=== PATIENT | male | born 1950 | race Caucasian/White ===

== ENCOUNTER 2020-09-07 14:03 | Observation (INO) ==
[2020-09-07] MEDS ORDERED: ACETAMINOPHEN 500 MG TAB PO STA (14:26)
[2020-09-07] MEDS ORDERED: SODIUM CHLORIDE 0.9% 1000ML 1,000 ML IV SCH ×2 (14:30→17:15)
--- NOTE | 2020-09-07 14:55 | Emergency Department Note ---
History of Present Illness General Chief complaint: Fever Stated complaint: FEVER, CHILS Time Seen by Provider: 09/07/20 14:13 History of Present Illness Provider complaint: Fever and chills Onset (ago): day(s) 5 Associated symptoms: + fever/chills (T-max 102), + nausea/vomiting (Vomiting but this has since resolved) and + weakness; no cough, no headaches, no rash and no shortness of breath 69-year-old male presents emergency department for fever and chills. Patient reports he has had fever and chills since Tuesday. He reports T-max of 102. He reports vomiting on . He states the vomiting is since resolved. No hematemesis coffee-ground emesis or bilious vomiting. No dysuria or hematuria. No melena or hematochezia. No chest pain abdominal pain headache or difficulty breathing. Patient states he went to [facility] today and had a rapid Covid and influenza swab that were negative. Patient states he is fully vaccinated gets COVID-19. Patient states he does spend a lot of time outdoors but has not noticed any ticks on him recently. Home Medications Medication Instructions Recorded Confirmed Type aspirin 325 mg PO QAM 09/07/20 09/07/20 History atorvastatin 80 mg PO HS 09/07/20 09/07/20 History cholecalciferol (vitamin D3) 400 unit PO QAM 09/07/20 09/07/20 History [Vitamin D3] coQ10 (ubiquinol) 400 mg PO QAM 09/07/20 09/07/20 History Allergies Allergy/AdvReac Type Severity Reaction Status Date / Time No Known Allergies Allergy Unverified 09/07/20 14:51 Past Med/Surg History Medical History CAD (coronary artery disease) HLD (hyperlipidemia) No pertinent family history Surgical History H/O heart artery stent Social History Smoking Status: Former smoker Tobacco Type: Cigarettes Preferred Language: Israeli Feels Safe at Home: Yes Review of Systems A total of 10 systems reviewed and were otherwise negative Physical Exam Vital Signs Vital Signs - 24 hr 09/07/20 14:08 09/07/20 14:42 09/07/20 14:45 Temperature 37.8 C H Temperature Source Temporal Artery Scan Pulse Rate 90 82 80 Pulse Rate [Right] Pulse Rate from SpO2 Sensor Pulse Rhythm [Right] Pulse Strength [Right] Respiratory Rate 18 18 21 Respiratory Effort / Characteristics Respiratory Depth Respiratory Pattern Blood Pressure 133/84 132/78 134/81 Blood Pressure [Right Arm] Blood Pressure Mean 100 96 98 Blood Pressure Mean [Right Arm] Pulse Oximetry 98 Oxygen Delivery Method Room Air Sepsis Recent Fever Within 48 Hours Yes Sepsis New/Unexplained Change in Mental Status No Sepsis Action Taken by Nursing No Action Required 09/07/20 15:00 09/07/20 15:01 09/07/20 15:15 Temperature Temperature Source Pulse Rate Pulse Rate [Right] Pulse Rate from SpO2 Sensor 83 82 79 Pulse Rhythm [Right] Pulse Strength [Right] Respiratory Rate 19 19 22 Respiratory Effort / Characteristics Respiratory Depth Respiratory Pattern Blood Pressure 135/74 133/74 Blood Pressure [Right Arm] Blood Pressure Mean 94 93 Blood Pressure Mean [Right Arm] Pulse Oximetry 97 97 98 Oxygen Delivery Method Sepsis Recent Fever Within 48 Hours Sepsis New/Unexplained Change in Mental Status Sepsis Action Taken by Nursing 09/07/20 15:16 09/07/20 15:24 09/07/20 15:30 Temperature Temperature Source Pulse Rate Pulse Rate [Right] Pulse Rate from SpO2 Sensor 81 83 Pulse Rhythm [Right] Pulse Strength [Right] Respiratory Rate 24 19 Respiratory Effort / Characteristics Non-Labored Non-Labored Respiratory Depth Respiratory Pattern Blood Pressure 126/81 Blood Pressure [Right Arm] Blood Pressure Mean 96 Blood Pressure Mean [Right Arm] Pulse Oximetry 98 100 Oxygen Delivery Method Room Air Sepsis Recent Fever Within 48 Hours Sepsis New/Unexplained Change in Mental Status Sepsis Action Taken by Nursing 09/07/20 15:31 09/07/20 15:34 09/07/20 15:45 Temperature 39.1 C H Temperature Source Oral Pulse Rate Pulse Rate [Right] 78 Pulse Rate from SpO2 Sensor 81 78 Pulse Rhythm [Right] Regular Pulse Strength [Right] Normal Respiratory Rate 21 19 19 Respiratory Effort / Characteristics Non-Labored Respiratory Depth Normal Respiratory Pattern Regular Blood Pressure 139/76 Blood Pressure [Right Arm] 126/81 Blood Pressure Mean 97 Blood Pressure Mean [Right Arm] 96 Pulse Oximetry 98 98 98 Oxygen Delivery Method Room Air Sepsis Recent Fever Within 48 Hours Sepsis New/Unexplained Change in Mental Status Sepsis Action Taken by Nursing 09/07/20 15:46 09/07/20 16:00 09/07/20 16:01 Temperature Temperature Source Pulse Rate Pulse Rate [Right] Pulse Rate from SpO2 Sensor 89 80 83 Pulse Rhythm [Right] Pulse Strength [Right] Respiratory Rate 18 23 22 Respiratory Effort / Characteristics Non-Labored Respiratory Depth Respiratory Pattern Blood Pressure 112/62 Blood Pressure [Right Arm] Blood Pressure Mean 78 Blood Pressure Mean [Right Arm] Pulse Oximetry 97 97 97 Oxygen Delivery Method Room Air Sepsis Recent Fever Within 48 Hours Sepsis New/Unexplained Change in Mental Status Sepsis Action Taken by Nursing Physical Exam GENERAL: He is oriented to person, place, and time. He appears well-developed and well-nourished. He does not appear distressed. HENT: Exam performed. - Head: Normocephalic and atraumatic. - Right Ear: External ear normal. No mastoid tenderness. - Left Ear: External ear normal. No mastoid tenderness. - Mouth/Throat: The oropharynx is clear and moist. No trismus in the jaw. No dental abscesses or uvula swelling. No oropharyngeal exudate or tonsillar abscesses. EYES: Conjunctivae and EOM are normal. Pupils are equal, round, and reactive to light. Right eye exhibits no discharge. Left eye exhibits no discharge. No scleral icterus. NECK: Normal range of motion. Neck supple. No JVD present. No spinous process tenderness present. No carotid bruit present. No rigidity. No tracheal deviation and normal range of motion present. No Brudzinski's sign and no Kernig's sign noted. CV: Tachycardic rate, regular rhythm, normal heart sounds and intact distal pulses. There is no peripheral edema. Palpable radial pulses bue. PULM/CHEST: Effort normal and breath sounds normal. No respiratory distress. No stridor. He has no wheezes. He has no rales. - Chest Wall: He exhibits no tenderness. ABD: The abdomen is soft. Bowel sounds are normal. He has no distension. No mass is present. There is no tenderness. There is no rebound, no guarding, no Alva's sign and no tenderness at McBurney's point. Rovsig negative. MUSC/SKEL: Normal range of motion. There is no peripheral edema, tenderness or deformity. LYMPH: No cervical adenopathy. NEURO: He is alert and oriented to person, place, and time. He has normal stren gth. No cranial nerve deficit or sensory deficit. Coordination and gait normal. GCS eye subscore is 4. GCS verbal subscore is 5. GCS motor subscore is 6. Cerebellar tests wnl. SKIN: Skin is warm and dry. He is not diaphoretic. PSYCH: He has a normal mood and affect. Behavior is normal. Judgment and thought content normal. Course Course 1413: The patient was evaluated in room B6. A complete history and physical exam was performed Cardiac monitoring: An order was placed for continuous cardiac monitoring. The monitor shows a rate of 100 with sinus rhythm 1630: Repeat physical exam the patient has no pain on palpation of the abdomen and no meningeal signs. No focal neurological deficit. Labs show leukopenia of 4.12. Platelet count 37. bilirubin 1.1. AST ALT 102/79 respectively. Troponin elevated 0.051. Patient continues to deny chest pain. Procalcitonin elevated 1.78. Urinalysis and chest x-ray negative. Peripheral smear negative for anaplasmosis Lyme screen and Covid screen negative. Despite the patient having a negative peripheral smear, the patient's labs are concerning for anaplasmosis infection given the thrombocytopenia, leukopenia and elevated liver enzymes. Patient be treated with doxycycline 100 mg IV. I did discuss the case with the hospitalist team who agreed with this antibiotics Barb Douglas. She states to admit to Dr. Peña is [facility] hospitalist. Administered Medications Doxycycline Hyclate 100 mg/ (Dextrose) 110 mls @ 50 mls/hr IV NOW STA Stop: 09/07/20 18:32 Last Admin: 09/07/20 17:22 Dose: 50 mls/hr Documented by: Discontinued Medications Acetaminophen (Acetaminophen 500 Mg Tab) 1,000 mg PO NOW STA Stop: 09/07/20 14:27 Last Admin: 09/07/20 15:36 Dose: 1,000 mg Documented by: [id number] Sodium Chloride (Nss 1000ml) 1,000 mls @ 999 mls/hr IV .Q1H1M ROZ Stop: 09/07/20 15:30 Last Admin: 09/07/20 15:38 Dose: 999 mls/hr Documented by: [id number] Medical Decision Making Laboratory Data Result diagrams: 09/07/20 14:40 09/07/20 14:40 Lab Results 09/07/20 09/07/20 09/07/20 Range/Units 14:33 14:33 14:40 WBC (4.8-10.8) K/uL RBC (4.7-6.1) M/uL Hgb (14.0-18.0) g/dL Hct (42-52) % MCV (80-100) fL MCH (25-34) pg MCHC (32-36) g/dL RDW Std Deviation (36.4-46.3) fL RDW Coeff of Delvis (11.5-14.5) % Plt Count (130-400) K/uL Immature Gran % (Auto) % Neut % (Auto) % Lymph % (Auto) % Winn % (Auto) % Eos % (Auto) % Baso % (Auto) % Neut # (Auto) (1.4-6.5) K/uL Lymph # (Auto) (1.2-3.4) K/uL Winn # (Auto) (0.11-0.59) K/uL Eos # (Auto) (0-0.5) K/uL Baso # (Auto) (0-0.2) K/uL Immature Gran # (Auto) (0.00-0.02) K/uL Platelet Estimate (Normal) PT (9.0-12.0) Seconds INR (0.9-1.1) APTT (21.0-31.0) Seconds PTT Ratio Sodium (136-145) mmol/L Potassium (3.5-5.1) mmol/L Chloride (98-107) mmol/L Carbon Dioxide (21-32) mmol/L Anion Gap (3-11) BUN (7-18) mg/dl Creatinine (0.6-1.4) mg/dl Est Cr Clr Drug Dosing ml/min Est GFR ( Amer) ml/min Est GFR (Non-Af Amer) ml/min BUN/Creatinine Ratio (10-20) Glucose (70-99) mg/dl Lactate (0.4-2.0) mmol/L Calcium (8.5-10.1) mg/dl Magnesium (1.8-2.4) mg/dl Total Bilirubin (0.2-1) mg/dl AST (15-37) U/L ALT (12-78) U/L Alkaline Phosphatase (45-117) U/L Troponin I (0-0.045) ng/ml Total Protein (6.4-8.2) gm/dl Albumin (3.4-5.0) gm/dl Globulin (2.5-4.0) gm/dl Albumin/Globulin Ratio (0.9-2) Procalcitonin (0-0.5) ng/ml Urine Color Urine Appearance (Clear) Urine pH (4.5-7.5) Ur Specific Victoria (1.000-1.030) Urine Protein (Negative) Urine Glucose (UA) (Negative) Urine Ketones (Negative) Urine Blood (Negative) Urine Nitrite (Negative) Urine Bilirubin (Negative) Urine Urobilinogen (Negative) Ur Leukocyte Esterase (Negative) Urine WBC (Auto) (0-5) /hpf Urine RBC (Auto) (0-4) /hpf U Hyaline Cast (Auto) (0-5) /lpf U Epithel Cells (Auto) (0-5) /lpf Urine Bacteria (Auto) (Negative) Urine Yeast Anaplasma Smear Lyme Disease IgG Ab Cancelled Lyme Disease IgM Ab Cancelled COVID-19 Eval Order Covid19 at [facility] SARS-CoV-2 (PCR) NEGATIVE (Negative) 09/07/20 09/07/20 09/07/20 Range/Units 14:40 14:40 14:40 WBC 4.12 L (4.8-10.8) K/uL RBC 4.88 (4.7-6.1) M/uL Hgb 15.1 (14.0-18.0) g/dL Hct 44.5 (42-52) % MCV 91.2 (80-100) fL MCH 30.9 (25-34) pg MCHC 33.9 (32-36) g/dL RDW Std Deviation 47.4 H (36.4-46.3) fL RDW Coeff of Delvis 14.0 (11.5-14.5) % Plt Count 37 L (130-400) K/uL Immature Gran % (Auto) 0.2 % Neut % (Auto) 64.7 % Lymph % (Auto) 19.4 % Winn % (Auto) 12.1 % Eos % (Auto) 0.0 % Baso % (Auto) 3.6 % Neut # (Auto) 2.66 (1.4-6.5) K/uL Lymph # (Auto) 0.80 L (1.2-3.4) K/uL Winn # (Auto) 0.50 (0.11-0.59) K/uL Eos # (Auto) 0.00 (0-0.5) K/uL Baso # (Auto) 0.15 (0-0.2) K/uL Immature Gran # (Auto) 0.01 (0.00-0.02) K/uL Platelet Estimate SIGNIFIC DECREASED (Normal) PT 10.3 (9.0-12.0) Seconds INR 1.0 (0.9-1.1) APTT 27.6 (21.0-31.0) Seconds PTT Ratio 1.0 Sodium 134 L (136-145) mmol/L Potassium 3.9 (3.5-5.1) mmol/L Chloride 98 (98-107) mmol/L Carbon Dioxide 31 (21-32) mmol/L Anion Gap 5.0 (3-11) BUN 20 H (7-18) mg/dl Creatinine 1.19 (0.6-1.4) mg/dl Est Cr Clr Drug Dosing 57.8 ml/min Est GFR ( Amer) 71.3 ml/min Est GFR (Non-Af Amer) 61.5 ml/min BUN/Creatinine Ratio 16.7 (10-20) Glucose 116 H (70-99) mg/dl Lactate (0.4-2.0) mmol/L Calcium 9.0 (8.5-10.1) mg/dl Magnesium 2.0 (1.8-2.4) mg/dl Total Bilirubin 1.1 H (0.2-1) mg/dl AST 102 H (15-37) U/L ALT 79 H (12-78) U/L Alkaline Phosphatase 184 H (45-117) U/L Troponin I 0.051 H* (0-0.045) ng/ml Total Protein 6.7 (6.4-8.2) gm/dl Albumin 3.0 L (3.4-5.0) gm/dl Globulin 3.7 (2.5-4.0) gm/dl Albumin/Globulin Ratio 0.8 L (0.9-2) Procalcitonin (0-0.5) ng/ml Urine Color Urine Appearance (Clear) Urine pH (4.5-7.5) Ur Specific Victoria (1.000-1.030) Urine Protein (Negative) Urine Glucose (UA) (Negative) Urine Ketones (Negative) Urine Blood (Negative) Urine Nitrite (Negative) Urine Bilirubin (Negative) Urine Urobilinogen (Negative) Ur Leukocyte Esterase (Negative) Urine WBC (Auto) (0-5) /hpf Urine RBC (Auto) (0-4) /hpf U Hyaline Cast (Auto) (0-5) /lpf U Epithel Cells (Auto) (0-5) /lpf Urine Bacteria (Auto) (Negative) Urine Yeast Anaplasma Smear See Comment Lyme Disease IgG Ab Lyme Disease IgM Ab COVID-19 Eval Order SARS-CoV-2 (PCR) (Negative) 09/07/20 09/07/20 09/07/20 Range/Units 14:40 14:41 14:45 WBC (4.8-10.8) K/uL RBC (4.7-6.1) M/uL Hgb (14.0-18.0) g/dL Hct (42-52) % MCV (80-100) fL MCH (25-34) pg MCHC (32-36) g/dL RDW Std Deviation (36.4-46.3) fL RDW Coeff of Delvis (11.5-14.5) % Plt Count (130-400) K/uL Immature Gran % (Auto) % Neut % (Auto) % Lymph % (Auto) % Winn % (Auto) % Eos % (Auto) % Baso % (Auto) % Neut # (Auto) (1.4-6.5) K/uL Lymph # (Auto) (1.2-3.4) K/uL Winn # (Auto) (0.11-0.59) K/uL Eos # (Auto) (0-0.5) K/uL Baso # (Auto) (0-0.2) K/uL Immature Gran # (Auto) (0.00-0.02) K/uL Platelet Estimate (Normal) PT (9.0-12.0) Seconds INR (0.9-1.1) APTT (21.0-31.0) Seconds PTT Ratio Sodium (136-145) mmol/L Potassium (3.5-5.1) mmol/L Chloride (98-107) mmol/L Carbon Dioxide (21-32) mmol/L Anion Gap (3-11) BUN (7-18) mg/dl Creatinine (0.6-1.4) mg/dl Est Cr Clr Drug Dosing ml/min Est GFR ( Amer) ml/min Est GFR (Non-Af Amer) ml/min BUN/Creatinine Ratio (10-20) Glucose (70-99) mg/dl Lactate 2.0 (0.4-2.0) mmol/L Calcium (8.5-10.1) mg/dl Magnesium (1.8-2.4) mg/dl Total Bilirubin (0.2-1) mg/dl AST (15-37) U/L ALT (12-78) U/L Alkaline Phosphatase (45-117) U/L Troponin I (0-0.045) ng/ml Total Protein (6.4-8.2) gm/dl Albumin (3.4-5.0) gm/dl Globulin (2.5-4.0) gm/dl Albumin/Globulin Ratio (0.9-2) Procalcitonin 1.78 H (0-0.5) ng/ml Urine Color Dark Yellow Urine Appearance Cloudy A (Clear) Urine pH 5.5 (4.5-7.5) Ur Specific Victoria 1.023 (1.000-1.030) Urine Protein 2+ H (Negative) Urine Glucose (UA) Negative (Negative) Urine Ketones Negative (Negative) Urine Blood 1+ H (Negative) Urine Nitrite Negative (Negative) Urine Bilirubin Negative (Negative) Urine Urobilinogen Negative (Negative) Ur Leukocyte Esterase Negative (Negative) Urine WBC (Auto) 1-5 (0-5) /hpf Urine RBC (Auto) 0-4 (0-4) /hpf U Hyaline Cast (Auto) 1-5 (0-5) /lpf U Epithel Cells (Auto) 10-20 H (0-5) /lpf Urine Bacteria (Auto) Negative (Negative) Urine Yeast Not Reportable Anaplasma Smear Lyme Disease IgG Ab Negative Lyme Disease IgM Ab Negative COVID-19 Eval Order SARS-CoV-2 (PCR) (Negative) Imaging Data Radiologist's Impression: Chest X-Ray 09/07/20 14:24 XR chest 1V portable CLINICAL HISTORY: SEPSIS COMPARISON STUDY: No previous studies for comparison. FINDINGS: Lung volumes are normal. Lungs are clear. There is no pneumothorax or pleural effusion. Mild cardiomegaly is noted. Mediastinal contours are normal. There is no evidence for pulmonary edema. There are median sternotomy wires and mediastinal surgical clips. IMPRESSION: No acute cardiopulmonary findings. ACT 112: Negative or not required by law. Electronically signed by: Ralph Barnes M.D. 09/07/2020 3:06 PM ECG Data Indication: + other (sepsis) Rate (beats per minute): 83 Rhythm: + normal sinus ECG Intervals/blocks: + Normal QRS, + Normal [place] and + Normal QT-c ECG ST segments: + Normal ST segments [facility] Narrative 1413: The patient was evaluated in room B6. A complete history and physical exam was performed Cardiac monitoring: An order was placed for continuous cardiac monitoring. The monitor shows a rate of 100 with sinus rhythm 1630: Repeat physical exam the patient has no pain on palpation of the abdomen and no meningeal signs. No focal neurological deficit. Labs show leukopenia of 4.12. Platelet count 37. bilirubin 1.1. AST ALT 102/79 respectively. Troponin elevated 0.051. Patient continues to deny chest pain. Procalcitonin elevated 1.78. Urinalysis and chest x-ray negative. Peripheral smear negative for anaplasmosis Lyme screen and Covid screen negative. Despite the patient having a negative peripheral smear, the patient's labs are concerning for anaplasmosis infection given the thrombocytopenia, leukopenia and elevated liver enzymes. Patient be treated with doxycycline 100 mg IV. I did discuss the case with the hospitalist team who agreed with this antibiotics Barb Douglas. She states to admit to Dr. Peña is [facility] hospitalist. Impression & Plan Sepsis, Thrombocytopenia, Elevated troponin, Transaminitis, At high risk for tick borne illness Discharge Plan Visit Data Chief Complaint: Fever Stated Complaint: FEVER, CHILS ED Provider: Chevy Tracy Discharge Problem: Sepsis, Thrombocytopenia, Elevated troponin, Transaminitis, At high risk for tick borne illness Patient Disposition: Admitted As Inpatient Forms Stand Alone Forms: My [facility] Prescriptions Prescriptions: No Action atorvastatin 80 mg Tablet 80 mg PO HS RF: 0 aspirin 325 mg Tablet 325 mg PO QAM RF: 0 cholecalciferol (vitamin D3) [Vitamin D3] 10 mcg (400 unit) Tablet 400 unit PO QAM RF: 0 coQ10 (ubiquinol) 200 mg Capsule 400 mg PO QAM RF: 0 Referrals Referrals: Jory Brower DO [Primary Care Provider] - Discharge Problem: Sepsis Qualifiers: Sepsis type: sepsis due to unspecified organism Sepsis acute organ dysfunction status: unspecified Qualified Code(s): A41.9 - Sepsis, unspecified organism
--- NOTE | 2020-09-07 15:08 | XRay Report ---
XR chest 1V portable CLINICAL HISTORY: SEPSIS COMPARISON STUDY: No previous studies for comparison. FINDINGS: Lung volumes are normal. Lungs are clear. There is no pneumothorax or pleural effusion. Mil d cardiomegaly is noted. Mediastinal contours are normal. There is no evidence for pulmonary edema. T here are median sternotomy wires and mediastinal surgical clips. IMPRESSION: No acute cardiopulmonary findings. ACT 112: Negative or not required by law. Electronically signed by: Ralph Barnes M.D. 09/07/2020 3:06 PM
[2020-09-07 15:11] LABS: Appearance Urine Cloudy (Clear); Bacteria Urine Automated Negative (Negative); Bilirubin Urine Negative (Negative); Blood Urine 1+ (Negative); Color Urine Dark Yellow; Glucose Urine UA Negative (Negative); Ketones Urine Negative (Negative); Leukocyte Esterase Urine Negative (Negative); Nitrite Urine Negative (Negative); Protein Urine 2+ (Negative); RBC Urine Automated 0-4 /hpf (0-4); Specific Gravity Urine 1.023 (1.000-1.030); Urobilinogen Urine Negative (Negative); pH Urine 5.5 (4.5-7.5)
[2020-09-07 15:14] LABS: Partial Thromboplastin Time 27.6 Seconds (21.0-31.0); Prothrombin Time 10.3 Seconds (9.0-12.0)
[2020-09-07 15:30] LABS: BUN Creatinine Ratio 16.7 (10-20); Creatinine Clr Calc Pharmacy 57.8 ml/min; Est GFR (African American) 71.3 ml/min; Est GFR (Non-African American) 61.5 ml/min; Potassium 3.9 mmol/L (3.5-5.1)
[2020-09-07 15:34] LABS: Hematocrit (blood only) 44.5 % (42-52); Hemoglobin 15.1 g/dL (14.0-18.0); Mean Corpuscular Hemoglobin 30.9 pg (25-34); Mean Corpuscular Hgb Conc 33.9 g/dL (32-36); Mean Corpuscular Volume 91.2 fL (80-100); Platelet Count 37 K/uL (130-400); RDW Standard Deviation 47.4 fL (36.4-46.3); Red Blood Count 4.88 M/uL (4.7-6.1); White Blood Count 4.12 K/uL (4.8-10.8)
[2020-09-07 15:38] LABS: Bilirubin,Total 1.1 mg/dl (0.2-1)
[2020-09-07 15:39] LABS: Albumin Globulin Ratio 0.8 (0.9-2); Globulin 3.7 gm/dl (2.5-4.0); Total Protein 6.7 gm/dl (6.4-8.2); Troponin I 0.051 ng/ml (0-0.045)
[2020-09-07 15:52] LABS: Procalcitonin 1.78 ng/ml (0-0.5)
[2020-09-07 15:57] LABS: Basophils # (auto) 0.15 K/uL (0-0.2); Basophils % (auto) 3.6 %; Immature Granulocytes # (auto) 0.01 K/uL (0.00-0.02); Immature Granulocytes % (auto) 0.2 %; Lymphocytes % (auto) 19.4 %; Monocytes % (auto) 12.1 %; Neutrophils # (auto) 2.66 K/uL (1.4-6.5); Neutrophils % (auto) 64.7 %; Platelet Estimate SIGNIFIC DECREASED (Normal)
[2020-09-07 16:00] LABS: Lyme Ab IgG w/WB Rflx Negative (Negative); Lyme Ab IgM w/WB Rflx Negative (Negative)
[2020-09-07] MEDS ORDERED: DOXYCYCLINE HYCLATE 100 MG in DEXTROSE 5% 100 ML IV STA (16:21)
--- NOTE | 2020-09-07 16:58 | History & Physical Report ---
Date of Service September 07, 2020 Assessment & Plan (1) At high risk for tick borne illness: (2) Fever and chills: This is a 69yo M with a PMH of CAD (s/p CABG in 1999) and HLD who presents with fever and chills x 5 days with high suspicion for tick borne illness. 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 Covid PCR negative, Lyme titer negative Peripheral smear without presence of inclusion bodies -Anaplasma DNA pending Continue doxycycline, adding IV Rocephin for additional coverage as well as vancomycin to empirically cover for endocarditis due to recent oral surgery Follow blood cultures Liver u/s in setting of transaminitis Supportive care with IV fluids, Tylenol as needed CMP, CBC in AM (3) Thrombocytopenia: Platelets 37 in setting of highly suspected tickborne illness SCDs only for VTE prophylaxis Holding aspirin for now Monitor with daily CBC (4) Transaminitis: Tbili 1.1, AST 102, ALT 79, alk phos 184 in setting of highly suspected tickborne illness No abdominal pain Liver u/s without gallstones or biliary ductal dilatation. 1.4cm cystic lesion nonspecific but likely reflects a mildly complex cyst * "A liver abscess is within the differential given the clinical history however the appearance is not suggestive of an abscess. Either short-term follow-up ultrasound or MRI could be obtained for further evaluation as indicated." Holding statin for now Monitor with daily CMP (5) Elevated troponin: Mildly elevated at 0.051 in setting of infection No chest pain or anginal symptomatic, no acute ischemic changes to EKG Observation on telemetry, resting echo, trend troponin (6) CAD (coronary artery disease): History of CABG in 1999 Aspirin held as mentioned above Has not needed to use nitroglycerin for years (7) HLD (hyperlipidemia): Holding statin as mentioned above DVT Ppx: SCDs Code status: FULL PCP: [facility] Dispo: Observation med tele. Discharge planning ordered. Patient seen in collaboration with Dr. Wiley. Please see addendum. (8) Sepsis: History of Present Illness Chief Complaint: fatigue, fever Primary Care Provider: Jory Brower DO This is a 69yo M with a PMH of CAD (s/p CABG in 1999) and HLD who presents with fever and chills x 5 days. Tmax of 102. Patient has been feeling too weak to get up from couch over the past few days, which is significantly different than active baseline, including yard work and hiking. Endorses poor appetite, nausea and one episode of vomiting a few days ago that has since resolved. Denies any headache, lightheadedness, neck pain, near syncope, chest pain, palpitations, shortness of breath, abdominal pain, bloating, dysuria, diarrhea or constipation. Did have tooth extraction on 08/22/20 and took a 7 day course of amoxicillin at that time. Takes full dose aspirin for history of CABG as well as statin and coQ10. Denies any tick bites but spends a lot of time outdoors. Also with pets at home. Allergies Allergy/AdvReac Type Severity Reaction Status Date / Time No Known Allergies Allergy Unverified 09/07/20 14:51 Home Medications Medication Instructions Recorded Confirmed Type aspirin 325 mg PO QAM 09/07/20 09/07/20 History atorvastatin 80 mg PO HS 09/07/20 09/07/20 History cholecalciferol (vitamin D3) 400 unit PO QAM 09/07/20 09/07/20 History [Vitamin D3] coQ10 (ubiquinol) 400 mg PO QAM 09/07/20 09/07/20 History Past Med/Surg History Medical History (Updated 09/07/20 @ 20:37 by Barb Douglas PA-C) CAD (coronary artery disease) HLD (hyperlipidemia) Surgical History H/O heart artery stent Family History Other Heart disease Hypertension Social History Smoking Status: Former smoker Tobacco Type: Cigarettes Second Hand Exposure: No; Hx Alcohol Use: No Hx Substance Use: No Preferred Language: Vietnamese Communication Ability: Effective Tenderizer Tender Required: No Beliefs That Will Affect Care: None Current Living Situation: Spouse Other Information That Helps Us Care for You: No Feels Safe at Home: Yes Safety Concerns: Feels Safe At This Time Assistive Devices: Glasses and Hearing Aid - Bilateral Review of Systems Review of Systems: At least ten systems reviewed and negative except as noted in the HPI. Physical Exam Physical Exam: General Appearance: vitals as above, sitting up in bed, pleasant, conversing easily but appears acutely ill, flushed Head: normocephalic, atraumatic Eyes: normal inspection, PERRL, conjunctivae normal, anicteric sclerae ENT: external ear and nose normal, oropharynx normal Neck: normal visual inspection, trachea midline, no thyromegaly Respiratory: normal respiratory effort, lungs clear to auscultation, no wheeze, rales, rhonchi. No accessory muscle use Cardiovascular: regular rate, rhythm, no murmur, normal peripheral pulses, no BLE edema. Vessels: no JVD Chest: normal inspection of chest Abdomen/GI: normal bowel sounds, soft, nontender, no hepatosplenomegaly Extremities/Musculoskeletal: no cyanosis or clubbing, extremities motor strength 5/5 Neurologic: PERRL, EOMI, accommodation nl, no face palsy, no dysarthria, CN's II-XI intact bilaterally and moves all extremities Psychiatric: A+Ox3, euthymic affect Skin: no rashes, normal color, warm/dry Results & Data Results & Data ([facility]) Vital Signs (Past 12 Hours) Vital Signs Temp Pulse Pulse Resp BP BP Pulse Ox 09/07/20 16:01 22 97 09/07/20 16:00 23 112/62 97 09/07/20 15:46 18 97 09/07/20 15:45 19 139/76 98 09/07/20 15:34 39.1 C H 78 19 126/81 98 09/07/20 15:31 21 98 09/07/20 15:30 19 126/81 100 09/07/20 15:16 24 98 09/07/20 15:15 22 133/74 98 09/07/20 15:01 19 97 09/07/20 15:00 19 135/74 97 09/07/20 14:45 80 21 134/81 09/07/20 14:42 82 18 132/78 09/07/20 14:08 37.8 C H 90 18 133/84 98 Laboratory Results Short CBC 09/07/20 Range/Units 14:40 WBC 4.12 L (4.8-10.8) K/uL Hgb 15.1 (14.0-18.0) g/dL Hct 44.5 (42-52) % Plt Count 37 L (130-400) K/uL BMP 09/07/20 14:40 Sodium 134 L Potassium 3.9 Chloride 98 Carbon Dioxide 31 BUN 20 H Creatinine 1.19 Glucose 116 H Calcium 9.0 Cardiac Enzymes 09/07/20 Range/Units 14:40 Troponin I 0.051 H* (0-0.045) ng/ml Liver Function 09/07/20 Range/Units 14:40 Total Bilirubin 1.1 H (0.2-1) mg/dl AST 102 H (15-37) U/L ALT 79 H (12-78) U/L Alkaline Phosphatase 184 H (45-117) U/L Albumin 3.0 L (3.4-5.0) gm/dl Urine 09/07/20 Range/Units 14:45 Urine Color Dark Yellow Urine Appearance Cloudy A (Clear) Urine pH 5.5 (4.5-7.5) Ur Specific [place] 1.023 (1.000-1.030) Urine Protein 2+ H (Negative) Urine Glucose (UA) Negative (Negative) Diagnostic Findings Chest X-Ray 09/07/20 14:24 XR chest 1V portable CLINICAL HISTORY: SEPSIS COMPARISON STUDY: No previous studies for comparison. FINDINGS: Lung volumes are normal. Lungs are clear. There is no pneumothorax or pleural effusion. Mild cardiomegaly is noted. Mediastinal contours are normal. There is no evidence for pulmonary edema. There are median sternotomy wires and mediastinal surgical clips. IMPRESSION: No acute cardiopulmonary findings. ACT 112: Negative or not required by law. Electronically signed by: Ralph Barnes M.D. 09/07/2020 3:06 PM ECG Findings: + T-wave inversion Change: no significant change Supervising Physician Co-Signing Physician Notes ATTENDING ADDENDUM : pt seen and examined , care co-ordinated with Barb Douglas PA-C this is 69 yo M with past medical hx of CAD s/p remote hx of CABG, hyperlipidemia who presents to ER with 4-5 days hx of fever ( T max 102 /not relieved by over the counter meds ) generalized body ache , fatigue , at baseline pt is very active , works on the yard , does lawn mowing past several days he has been pretty stayed in either bed or chair felt dizzy and lightheaded when standing up appetite very poor no complain of abdominal pain , no nausea /vomiting or diarrhea no Cough or sob , no orthopnea , no chest pain or chest tightness . does not recall having tick bite FEVER /BODY ACHE: possible Tick borne disease : Lyme titer negative , anaplasma smear negative /DNA result pending Negative lyme titer pt received Doxycycline in ER ,which will be continued added IV Rocephin supportive care with IV fluid , PRN tylenol pt reports have wisdom tooth removed recently, ordered for Blood culture empirically started on Vancomycin IV for endocarditis Vancomycin will be d/laury if blood cultures negative growth ELEVATED LFT : possible due to Tick borne disease pt denies of any GI symptoms , no rt upper quadrant pain hold statin follow repeat lab in am IV fluids liver USG THROMBOCYTOPENIA : pearson cytpenia could be due to Tick borne disease hold Aspirin peripheral blood smear CBC in am ELEVATED TROPONIN : does not have any chest pain or angia symptoms EKG no ischemic change observation in tele , resting ECHO , serial cardiac markers ordered Aspirin and statin on hold due to above please refer to further documentation by Barb Douglas PA-C for discussion of other medical issues Rosemarie Tolliver MD (1) Sepsis Sepsis acute organ dysfunction status: unspecified Sepsis type: sepsis due to unspecified organism Qualified Code(s): A41.9 - Sepsis, unspecified organism
[2020-09-07] MEDS ORDERED: NITROGLYCERIN SL 0.4 MG/TAB TAB SL PRN (17:08)
[2020-09-07] MEDS ORDERED: ACETAMINOPHEN 325 MG TAB PO PRN (17:08)
[2020-09-07] MEDS ORDERED: ALUMINUM/MAGNESIUM SUSP 30 ML UDC PO PRN (17:08)
[2020-09-07] MEDS ORDERED: MAGNESIUM HYDROXIDE SUSP 30 ML UDC PO PRN (17:08)
[2020-09-07] MEDS ORDERED: ONDANSETRON INJ 2 MG/ML 2 ML VIAL IV PRN (17:08)
[2020-09-07] MEDS ORDERED: POLYETHYLENE (MIRALAX) 17 GM PACK PO PRN (17:08)
--- NOTE | 2020-09-07 17:36 | Communication Note ---
Date of Service: September 07, 2020 ATTENDING ADDENDUM : pt seen and examined , care co-ordinated with Barb oDuglas PA-C this is 69 yo M with past medical hx of CAD s/p remote hx of CABG, hyp erlipidemia who presents to ER with 4-5 days hx of fever ( T max 102 /not relieved by over the counter meds ) generalized body ache , fatigue , at baseline pt is very active , works on the yard , does [employer] mowing past several days he has been pretty stayed in either bed or chair felt dizzy and lightheaded when standing up appetite very poor no complain of abdominal pain , no nausea /vomiting or diarrhea no Cough or sob , no orthopnea , no chest pain or chest tightness . does not recall having tick bite FEVER /BODY ACHE: possible Tick borne disease : Lyme titer negative , anaplasma smear negative /DNA result pending Negative lyme titer pt received Doxycycline in ER ,which will be continued added IV Rocephin supportive care with IV fluid , PRN tylenol pt reports have wisdom tooth removed recently, ordered for Blood culture empirically started on Vancomycin IV for endocarditis Vancomycin will be d/laury if blood cultures negative growth ELEVATED LFT : possible due to Tick borne disease pt denies of any GI symptoms , no rt upper quadrant pain hold statin follow repeat lab in am IV fluids liver USG THROMBOCYTOPENIA : pearson cytpenia could be due to Tick borne disease hold Aspirin peripheral blood smear CBC in am ELEVATED TROPONIN : does not have any chest pain or angia symptoms EKG no ischemic change observation in tele , resting ECHO , serial cardiac markers ordered Aspirin and statin on hold due to above please refer to further documentation by Barb Douglas PA-C for discussion of other medical issues Rosemarie Tolliver MD
[2020-09-07] MEDS ORDERED: VANCOMYCIN CONSULT ACTIVE PRN (18:32)
--- NOTE | 2020-09-07 18:38 | Ultrasound Report ---
US liver CLINICAL HISTORY: elevated liver enzymes COMPARISON STUDY: No previous studies for comparison. FINDINGS: Liver morphology is normal. Note is made of a 1.4 cm cystic focus within the left hepatic l obe which contains a few echogenic foci. No color flow is identified within the lesion. There is no b iliary ductal dilatation. The common bile duct measures 3 mm in caliber. No gallstones are noted. Gal lbladder wall thickness is at the upper limits of normal. There is no pericholecystic fluid. Pancreat ic body is normal. Head and tail are partially obscured. There is no right hydronephrosis. IMPRESSION: 1. No gallstones or biliary ductal dilatation. 2. 1.4 cm cystic lesion within the left hepatic lobe which contains a few echogenic foci. This is non specific but likely reflects a mildly complex cyst. A liver abscess is within the differential given the clinical history however the appearance is not suggestive of an abscess. Either short-term follo w-up ultrasound or MRI could be obtained for further evaluation as indicated. ACT 112: Negative or not required by law. Electronically signed by: Ralph Barnes M.D. 09/07/2020 6:37 PM
[2020-09-07] MEDS ORDERED: VANCOMYCIN HCL 1,750 MG in SODIUM CHLORIDE 0.9% 500 ML IV STA (18:49)
--- NOTE | 2020-09-07 18:55 | Electrocardiogram Report ---
Test Reason : Blood Pressure : / mmHG Vent. Rate : 083 BPM Atrial Rate : 083 BPM P-R Int : 182 ms QRS Dur : 084 ms QT Int : 346 ms P-R-T Axes : 070 -13 098 degrees QTc Int : 406 ms Normal sinus rhythm Possible Left atrial enlargement Nonspecific T wave abnormality Abnormal ECG No previous ECGs available Confirmed by René Amborse ([id number]) on 09/07/2020 6:55:14 PM Referred By: REFERRED SELF Confirmed By:Dl Ambrose
[2020-09-07] MEDS ORDERED: cefTRIAXone SODIUM 2,000 MG/70 ML BAG IV SCH (19:00)
--- NOTE | 2020-09-07 19:22 | Pharmacy Report ---
Pharmacy Abx Dose Short Note - Date of Service September 07, 2020 - Assessment & Plan Assessment 69 year old M receiving Vancomycin, Doxycycline and Ceftriaxone empirically. * PMHx significant for CAD s/p remote hx of CABG, HLD * Presents w/ 4-5 day hx of fever generalized body aches and fatigue * Currently on Doxycycline and Ceftriaxone for possibly tick borne disease * Adding Vancomycin empirically for possibility of endocarditis given recent removal of wisdom tooth Plan Vancomycin * Will target an AUC/JERRELL of 400-600 * AUC/JERRELL is the preferred PK/PD target for vancomycin dosing * Loading dose = 1750 mg (22 mg/kg) IV x 1 * Maintenance dose = 750 mg (9 mg/kg) IV every 12 hours * This regimen is expected to produce a steady-state AUC of [] and steady- state trough of []. The probability of achieving our goal AUC with this regimen is [] compared to a [] risk of nephrotoxicity. Ceftriaxone (lyme indication) * 2000 mg IV every 24 hours * Not a pharmacy consult. Appropriate dosing per indication. If endocarditis is confirmed, then will need to increase dose to every 12 hours. Doxycycline (lyme indication) * 100 mg IV x 1 followed by 100 mg PO BID * Not a pharmacy consult. Appropriate dosing per indication. Pharmacy will continue to follow and will adjust dose/frequency as necessary. Thank you.
[2020-09-08 03:35] LABS: Hematocrit (blood only) 40.3 % (42-52); Hemoglobin 13.7 g/dL (14.0-18.0); Mean Corpuscular Volume 88.2 fL (80-100); Mean Platelet Volume 12.3 fL (7.4-10.4); Platelet Count 40 K/uL (130-400); RDW Coefficient of Variation 14.1 % (11.5-14.5); RDW Standard Deviation 45.7 fL (36.4-46.3); Red Blood Count 4.57 M/uL (4.7-6.1); White Blood Count 5.24 K/uL (4.8-10.8)
[2020-09-08 03:43] LABS: Albumin Globulin Ratio 0.8 (0.9-2); Albumin Level 2.6 gm/dl (3.4-5.0); BUN Creatinine Ratio 18.4 (10-20); Bilirubin,Total 0.7 mg/dl (0.2-1); Est GFR (African American) 101.3 ml/min; Est GFR (Non-African American) 87.4 ml/min; Globulin 3.4 gm/dl (2.5-4.0); Potassium 4.4 mmol/L (3.5-5.1)
[2020-09-08] MEDS ORDERED: VANCOMYCIN HCL 1,000 MG in SODIUM CHLORIDE 0.9% 250 ML IV SCH (07:00)
[2020-09-08] MEDS ORDERED: VANCOMYCIN HCL 750 MG in SODIUM CHLORIDE 0.9% 250 ML IV SCH (07:00)
[2020-09-08] MEDS: CHOLECALCIFEROL 400 UNITS 10 MCG TAB PO SCH (08:33)
[2020-09-08] MEDS: DOXYCYCLINE HYCLATE 100 MG CAP PO SCH ×2 (08:33→20:58)
[2020-09-08] MEDS ORDERED: NON-FORMULARY MEDICATION (Coq10 (Ubiquinol) 200 mg Capsule) PO SCH (09:00)
[2020-09-08] MEDS ORDERED: VANCOMYCIN HCL 750 MG in SODIUM CHLORIDE 0.9% 250 ML IV ONE (09:00)
[2020-09-08] MEDS ORDERED: ASPIRIN 325 MG ECTAB PO SCH ×2 (09:00)
--- NOTE | 2020-09-08 17:58 | Electrocardiogram Report ---
Test Reason : Blood Pressure : / mmHG Vent. Rate : 049 BPM Atrial Rate : 049 BPM P-R Int : 194 ms QRS Dur : 086 ms QT Int : 430 ms P-R-T Axes : 079 -04 090 degrees QTc Int : 388 ms Sinus bradycardia Possible Left atrial enlargement Abnormal ECG When compared with ECG of 07-SEP-2020 14:38, Vent. rate has decreased BY 34 BPM Confirmed by René Ambrose ([id number]) on 09/08/2020 5:57:30 PM Referred By: REFERRED SELF Confirmed By:Dl Ambrose
--- NOTE | 2020-09-08 19:04 | Hospitalist Progress Note ---
Date of Service September 08, 2020 Assessment & Plan (1) At high risk for tick borne illness: (2) Fever and chills: , possible tick borne disease, This is a 69yo M with a PMH of CAD (s/p CABG in 1999) and HLD who presents with fever and chills x 5 days with high suspicion for tick borne illness. 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 Covid PCR negative, Lyme titer negative Peripheral smear without presence of inclusion bodies -Anaplasma DNA pending Clinically has much improved, afebrile, blood cultures been negative: We will DC vancomycin, continue with single agent of p.o. doxycycline as patient is clinically improving Repeat labs in a.m., plan for discharge home tomorrow if patient remains clinically stable (3) Thrombocytopenia: Platelets 37 in setting of highly suspected tickborne illness Platelet count continues to improve, bleeding complication SCDs only for VTE prophylaxis Continue to hold aspirin until platelet count improves more than 100 K (4) Transaminitis: Liver enzymes improved, No nausea vomiting abdominal pain tolerating diet Tbili 1.1, AST 102, ALT 79, alk phos 184 in setting of highly suspected tickborne illness No abdominal pain Liver u/s without gallstones or biliary ductal dilatation. 1.4cm cystic lesion nonspecific but likely reflects a mildly complex cyst * "A liver abscess is within the differential given the clinical history however the appearance is not suggestive of an abscess. Either short-term follow-up ultrasound or MRI could be obtained for further evaluation as indicated." Holding statin for now Patient follow-up with liver function test in 1 week (5) Elevated troponin: Mild elevation of troponin noted without any anginal symptoms no hypoxia, troponin level has been flattened, No chest pain or anginal symptomatic, no acute ischemic changes to EKG Resting echo shows no wall motion abnormality, no other cardiac intervention needed (6) CAD (coronary artery disease): History of CABG in 1999 Aspirin held as mentioned above Patient remained stable, no chest pain or shortness of breath (7) HLD (hyperlipidemia): Holding statin as mentioned above DVT Ppx: SCDs Code status: FULL PCP: [facility] Dispo: Plan for discharge home tomorrow if remains stable, update given to patient's at bedside Admission and Anticipated Discharge Date Admission Date: September 07, 2020 Subjective Patient has been afebrile, feels much better today, no weakness or paresthesia Energy much improved, no fever or chills Denies of any chest pain no cough no shortness of breath Review of Systems Review of Systems: All systems reviewed & are unremarkable except as noted in Subjective Physical Exam Physical Exam: Physical exam: General: No acute distress, alert awake oriented x3 HEENT: PERRLA, EOMI, Heart: Regular S1-S2, no carotid bruit, no JVD, no lower extremity edema Lungs: Clear to auscultate, no wheeze or rales Abdomen: Soft nontender, no organomegaly Extremity: No cyanosis, no deformity, normal strength 5 out of 5 with upper and lower Neuro: No focal neurological deficit normal speech, normal visual field, Motor strength : normal both upper and lower extremity, sensation intact Psych: Alert awake oriented x3, normal affect Results & Data Results & Data ([facility]) Vital Signs (Past 12 Hours) Vital Signs Temp Pulse Pulse Resp BP BP Pulse Ox 09/08/20 15:00 57 L 09/08/20 14:46 36.8 C 51 L 20 118/71 98 09/08/20 11:00 36.7 C 58 L 20 107/67 97 09/08/20 08:20 36.5 C 66 18 125/68 99
[2020-09-08] MEDS ORDERED: VANCOMYCIN HCL 1,500 MG in SODIUM CHLORIDE 0.9% 500 ML IV SCH (20:00)
[2020-09-09 08:41] LABS: Hematocrit (blood only) 43.5 % (42-52); Hemoglobin 14.9 g/dL (14.0-18.0); Mean Corpuscular Hemoglobin 30.8 pg (25-34); Mean Corpuscular Hgb Conc 34.3 g/dL (32-36); Mean Corpuscular Volume 89.9 fL (80-100); Mean Platelet Volume 11.8 fL (7.4-10.4); Platelet Count 94 K/uL (130-400); Platelet Estimate Decreased (Normal); RDW Coefficient of Variation 14.2 % (11.5-14.5); RDW Standard Deviation 47.2 fL (36.4-46.3); Red Blood Count 4.84 M/uL (4.7-6.1); White Blood Count 8.71 K/uL (4.8-10.8)
[2020-09-09 08:42] LABS: Albumin Level 2.8 gm/dl (3.4-5.0); BUN Creatinine Ratio 18.3 (10-20); Creatinine Clr Calc Pharmacy 81.8 ml/min; Est GFR (African American) 102.8 ml/min; Est GFR (Non-African American) 88.7 ml/min; Potassium 4.1 mmol/L (3.5-5.1)
[2020-09-09 08:45] LABS: Albumin Globulin Ratio 0.8 (0.9-2); Bilirubin,Total 0.6 mg/dl (0.2-1); Globulin 3.6 gm/dl (2.5-4.0); Total Protein 6.4 gm/dl (6.4-8.2)
[2020-09-09] MEDS: DOXYCYCLINE HYCLATE 100 MG CAP PO SCH (08:48)
[2020-09-09] MEDS: CHOLECALCIFEROL 400 UNITS 10 MCG TAB PO SCH (08:48)
--- NOTE | 2020-09-09 12:05 | Electrocardiogram Report ---
Test Reason : Blood Pressure : / mmHG Vent. Rate : 063 BPM Atrial Rate : 063 BPM P-R Int : 194 ms QRS Dur : 096 ms QT Int : 434 ms P-R-T Axes : 078 -43 084 degrees QTc Int : 444 ms Normal sinus rhythm Left axis deviation Abnormal ECG When compared with ECG of 08-SEP-2020 05:57, QRS axis Shifted left Confirmed by René Ambrose ([id number]) on 09/09/2020 12:04:49 PM Referred By: REFERRED SELF Confirmed By:Dl Ambrose
--- NOTE | 2020-09-10 13:47 | Discharge Summary ---
Date of Service September 10, 2020 Admission HPI Per Admitting Provider This is a 69yo M with a PMH of CAD (s/p CABG in 1999) and HLD who presents with fever and chills x 5 days. Tmax of 102. Patient has been feeling too weak to get up from couch over the past few days, which is significantly different than active baseline, including yard work and hiking. Endorses poor appetite, nausea and one episode of vomiting a few days ago that has since resolved. Denies any headache, lightheadedness, neck pain, near syncope, chest pain, palpitations, shortness of breath, abdominal pain, bloating, dysuria, diarrhea or constipation. Did have tooth extraction on 08/22/20 and took a 7 day course of amoxicillin at that time. Takes full dose aspirin for history of CABG as well as statin and coQ10. Denies any tick bites but spends a lot of time outdoors. Also with pets at home. Principal Diagnosis Fever/weakness, Abnormal liver function test Possible tickborne illness Discharge Data Allergies Allergy/AdvReac Type Severity Reaction Status Date / Time No Known Allergies Allergy Unverified 09/07/20 14:51 Consultations 09/07/20 16:28 ED Decision to Admit Stat Ordered Studies 09/07/20 17:19 US liver Stat Hospital Course (1) At high risk for tick borne illness: (2) Fever and chills: , possible tick borne disease, This is a 69yo M with a PMH of CAD (s/p CABG in 1999) and HLD who presents with fever and chills x 5 days with high suspicion for tick borne illness. 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 Covid PCR negative, Lyme titer negative Peripheral smear without presence of inclusion bodies -Anaplasma DNA ordered Clinically has much improved, afebrile, blood cultures been negative: lab shows improvement of platelet count no complain of body aches , energy /appetite at baseline stable to be discharged home tday (3) Thrombocytopenia: setting of highly suspected tickborne illness Platelet count continues to improve, no bleeding complication SCDs only for VTE prophylaxis Continue to hold aspirin until platelet count improves more than 100 K stable to be discharged home (4) Transaminitis: Liver enzymes improved, No nausea vomiting abdominal pain tolerating diet Tbili 1.1, AST 102, ALT 79, alk phos 184 in setting of highly suspected tickborne illness No abdominal pain Liver u/s without gallstones or biliary ductal dilatation. 1.4cm cystic lesion nonspecific but likely reflects a mildly complex cyst * "A liver abscess is within the differential given the clinical history however the appearance is not suggestive of an abscess. Either short-term follow-up ultrasound or MRI could be obtained for further evaluation as indicated." Holding statin for now clinic follow-up with liver function test in 1 week (5) Elevated troponin: Mild elevation of troponin noted without any anginal symptoms no hypoxia, troponin level has been flattened, No chest pain or anginal symptomatic, no acute ischemic changes to EKG Resting echo shows no wall motion abnormality, no other cardiac intervention needed (6) CAD (coronary artery disease): History of CABG in 1999 Aspirin held as mentioned above Patient remained stable, no chest pain or shortness of breath (7) HLD (hyperlipidemia): Holding statin as mentioned above DVT Ppx: SCDs Code status: FULL PCP: [facility] Dispo: stable to be discharged home today Total Time Total Time Spent Total Time Spent (In Minutes): 35 min Total Time Includes: Examination of the Patient, Discharge Planning and Medication Reconciliation Discharge Plan Discharge Items Patient Disposition: Home - Self-Care Reason For Visit: FEVER,WEAKNESS Discharge Diagnosis: Fever/weakness, Abnormal liver function test Possible tickborne illness Activity: Resume your previous activity Non-emergency contact: Primary Care Provider Call non-emergency contact if: you have any medication questions Follow-up/Referrals: Jory Brower DO [Primary Care Provider] - (Date & Time 09/15/2020 11:10 AM Provider Jory Brower DO [facility] ) Diet: Heart Healthy Addtl Attending Provider Instructions: Please take all medications as instructed on discharge list below. Lab work: Complete blood count, liver function test with next physician visit It is recommended that you follow-up with your primary care physician within 1-2 weeks of hospital discharge to ensure you are still doing well. Please call if you have any questions or problems. You can reach a [facility] hospitalist on duty at [facility] 24 hours a day by calling [phone] [facility] [employer] Provider Instructions: Do not take statin or aspirin until your lab work: Platelet count, liver function normalizes Pending Studies at Discharge: No Stand-Alone Forms: [facility], Smoking Cessation Medications and DC Order Prescriptions: New doxycycline hyclate 100 mg Capsule 100 mg PO BID 10 Days Qty: 20 RF: 0 Continued cholecalciferol (vitamin D3) [Vitamin D3] 10 mcg (400 unit) Tablet 400 unit PO QAM RF: 0 coQ10 (ubiquinol) 200 mg Capsule 400 mg PO QAM RF: 0 Discontinued atorvastatin 80 mg Tablet 80 mg PO HS RF: 0 aspirin 325 mg Tablet 325 mg PO QAM RF: 0 Discharge Orders: Discharge Order (Routine); Ordered 09/09/20 Ordered By: Rosemarie Wiley Admission Data Admit Date/Time: 09/07/20 17:08 Attending Provider: Rosemarie Wiley Admit Provider: Rosemarie Wiley Primary Care Provider: Jory Brower Other Providers: [facility] ; Rosemarie Wiley Other Interventions: Discharge Summary Assessment (RN) Last Done: 09/09/20 14:34
== END 2020-09-09 15:11 | disposition home or self-care (01) ==
LOC: ED 14:03 → 2S 14:03 → 2W 09-08 16:48